=== PATIENT | female | born 1960 | race Two or more races ===

== ENCOUNTER 2017-11-14 19:22 | Inpatient (IN) | payer MEDICAID ==
[~2017-11-14] VITALS: Ht 165.1 cm; Wt 105.3 kg
[2017-11-14 21:31] LABS: Basophils # (auto) 0.1 uL; Basophils % (auto) 1.1 % (0.0-2.0); Eosinophils # (auto) 0.1 uL; Eosinophils % (auto) 1.8 % (0.0-7.0); Hematocrit 47.1 % (36.0-46.0); Hemoglobin 15.4 g/dL (12.2-16.2); Lymphocytes # (auto) 3.1 uL; Lymphocytes % (auto) 40.9 % (10.0-50.0); Mean Corpuscular Hemoglobin 28.2 pg (28.0-32.0); Mean Corpuscular Hgb Conc. 32.7 g/dL (32.0-36.0); Mean Corpuscular Volume 86.2 fL (80.0-100.0); Monocytes # (auto) 0.4 uL; Monocytes % (auto) 5.2 % (0.0-12.0); Neutrophils # (auto) 3.9 uL; Nucleated Red Blood Cells % 0.1 %; Platelet Count (auto) 237 10^3/uL (140-450); Red Blood Cells 5.47 10^6/uL (4.0-5.20); Red Cell Distribution Width 13.3 % (11.8-14.3); White Blood Cell 7.6 10^3/uL (4.4-10.8)
[2017-11-14 21:44] LABS: Alanine Aminotransferase 61 U/L (13-56); Albumin 3.8 g/dL (3.4-5.0); Alkaline Phosphatase 85 U/L (45-117); Anion Gap 7 (5-15); Aspartate Aminotransferase 32 U/L (15-37); BUN/Creatinine Ratio 14.8; Bilirubin, Total 0.3 mg/dL (0.2-1.0); Blood Urea Nitrogen 12 mg/dL (7-18); Calcium 9.3 mg/dL (8.5-10.1); Carbon Dioxide 30 mmol/L (21-32); Chloride 97 mmol/L (98-107); GFR African American 94 mL/min; GFR Non-African American 78 mL/min; Glucose 358 mg/dL (74-106); Magnesium 2.1 mg/dL (1.6-2.6); Potassium 4.7 mmol/L (3.5-5.1); Sodium 134 mmol/L (136-145); Total Protein 7.8 g/dL (6.4-8.2)
[2017-11-15] MEDS ORDERED: ASPirin 81 mg TAB PO ONE (02:15)
[2017-11-15] MEDS ORDERED: SODIUM CHLORIDE 0.9% 1,000 ML IV ONE (02:15)
[2017-11-15] MEDS ORDERED: ONDANSETRON HCL 4 MG/2 ML VIAL IV PRN (05:30)
[2017-11-15] MEDS ORDERED: HYDROcodone-ACET 5/325MG TAB PO PRN (05:30)
[2017-11-15] MEDS ORDERED: DEXTROSE (50%) 50ML SYRG IV PRN (05:30)
[2017-11-15] MEDS: ACCU-CHEK COMFORT CURVE STRIP VI SCH ×4 (07:07→22:01)
[2017-11-15] MEDS: InsuLIN REG 1unit/0.01ml Soln (100units/ml) SC SCH ×3 (07:07→18:35)
[2017-11-15 07:55] VITALS: BP 150/89
[2017-11-15] MEDS ORDERED: LOSA50TA6 PO (07:59)
[2017-11-15] MEDS ORDERED: ATEN50TA PO (07:59)
[2017-11-15] MEDS ORDERED: ASPI81TA27 PO (07:59)
[2017-11-15] MEDS ORDERED: PNEUMOCOCCAL VACC POLYS 25 MCG/0.5 ML VIAL IM ONE (09:15)
[2017-11-15] MEDS ORDERED: INFLUENZA QUAD 2017-2018 0.5 ML SYRG IM ONE (09:15)
[2017-11-15 09:32] LABS: Basophils # (auto) 0.1 uL; Basophils % (auto) 0.9 % (0.0-2.0); Eosinophils # (auto) 0.1 uL; Eosinophils % (auto) 1.8 % (0.0-7.0); Lymphocytes # (auto) 2.1 uL; Lymphocytes % (auto) 36.8 % (10.0-50.0); Mean Corpuscular Hemoglobin 28.3 pg (28.0-32.0); Mean Corpuscular Hgb Conc. 33.4 g/dL (32.0-36.0); Mean Corpuscular Volume 84.9 fL (80.0-100.0); Monocytes # (auto) 0.3 uL; Neutrophils # (auto) 3.1 uL; Neutrophils % (auto) 54.5 % (37.0-80.0); Nucleated Red Blood Cells % 0.2 %; Platelet Count (auto) 206 10^3/uL (140-450); Red Blood Cells 5.29 10^6/uL (4.0-5.20); Red Cell Distribution Width 13.4 % (11.8-14.3); White Blood Cell 5.7 10^3/uL (4.4-10.8)
[2017-11-15] MEDS: METOPROLOL TARTRATE 50 MG TAB PO SCH ×2 (09:43→22:01)
[2017-11-15] MEDS: ASPirin-EC 81 mg tab PO SCH (09:43)
[2017-11-15] MEDS: LOSARTAN POTASSIUM 50 MG TAB PO SCH (09:44)
[2017-11-15 09:51] LABS: BUN/Creatinine Ratio 13.7; Calcium 8.5 mg/dL (8.5-10.1)
[2017-11-15 13:00] VITALS: BP 155/93
[2017-11-15 17:26] VITALS: BP 141/74
[2017-11-15] MEDS: ACETAMINOPHEN 500 MG TAB PO PRN (18:35)
[2017-11-15 19:23] LABS: Urine WBC None Seen /hpf (0 - 5)
[2017-11-15 19:58] LABS: Urine Bacteria NONE SEEN /hpf (None Seen); Urine Blood Negative /uL (Negative); Urine Specific Gravity 1.005 (1.001-1.035)
[2017-11-15 20:00] VITALS: BP 137/83
[2017-11-15] MEDS ORDERED: InsuLIN REG 1unit/0.01ml Soln (100units/ml) SC SCH (22:00)
[2017-11-15] MEDS ORDERED: ATORVASTATIN 20 MG TAB PO SCH (22:00)
[2017-11-16] MEDS: ACETAMINOPHEN 500 MG TAB PO PRN (04:53)
[2017-11-16] MEDS: ACCU-CHEK COMFORT CURVE STRIP VI SCH (06:56)
[2017-11-16] MEDS: InsuLIN REG 1unit/0.01ml Soln (100units/ml) SC SCH (06:57)
[2017-11-16 07:21] LABS: Basophils # (auto) 0.1 uL; Eosinophils # (auto) 0.1 uL; Eosinophils % (auto) 2.3 % (0.0-7.0); Hematocrit 44.4 % (36.0-46.0); Lymphocytes # (auto) 1.9 uL; Lymphocytes % (auto) 33.6 % (10.0-50.0); Mean Corpuscular Hemoglobin 28.4 pg (28.0-32.0); Mean Corpuscular Hgb Conc. 33.7 g/dL (32.0-36.0); Mean Corpuscular Volume 84.3 fL (80.0-100.0); Monocytes # (auto) 0.3 uL; Monocytes % (auto) 5.9 % (0.0-12.0); Neutrophils # (auto) 3.3 uL; Neutrophils % (auto) 57.2 % (37.0-80.0); Nucleated Red Blood Cells % 0.1 %; Platelet Count (auto) 187 10^3/uL (140-450); Red Blood Cells 5.27 10^6/uL (4.0-5.20); Red Cell Distribution Width 13.5 % (11.8-14.3); White Blood Cell 5.8 10^3/uL (4.4-10.8)
[2017-11-16 07:39] LABS: BUN/Creatinine Ratio 15.8; Calcium 8.5 mg/dL (8.5-10.1); Magnesium 2.2 mg/dL (1.6-2.6)
[2017-11-16 07:46] LABS: Phosphorus 4.3 mg/dL (2.5-4.90)
[2017-11-16 08:00] VITALS: BP 132/87
[2017-11-16] MEDS: LOSARTAN POTASSIUM 50 MG TAB PO SCH (10:04)
[2017-11-16] MEDS: ASPirin-EC 81 mg tab PO SCH (10:04)
[2017-11-16] MEDS: METOPROLOL TARTRATE 50 MG TAB PO SCH (10:05)
[2017-11-16 13:00] VITALS: BP 161/77
[2017-11-16] MEDS ORDERED: METF-370 PO (13:49)
[2017-11-16] MEDS ORDERED: GLIP-115 PO (13:49)
[2017-11-16 14:28] VITALS: BP 161/97
[2017-11-17] MEDS ORDERED: LOSARTAN POTASSIUM 50 MG TAB PO SCH (10:00)
[2017-11-17] MEDS ORDERED: ASPirin-EC 81 mg tab PO SCH (10:00)
== END 2017-11-16 15:25 | disposition home or self-care (01) | DRG 203 ==
LOC: ER 19:22 → TELE 19:23 → TELE-WESTW 11-15 08:56 → TELE-CENTR 11-15 11:20
PROVIDERS: ADMIT Nurse Practitioner Family; ATTEND Nurse Practitioner Acute Care
DX: R07.9 Chest pain, unspecified (principal); E11.65 Type 2 diabetes mellitus with hyperglycemia; I10 Essential (primary) hypertension; D75.1 Secondary polycythemia; E87.1 Hypo-osmolality and hyponatremia; E66.9 Obesity, unspecified; Z82.49 Family history of ischemic heart disease and other diseases of the circulatory system; Z83.3 Family history of diabetes mellitus; Z23 Encounter for immunization; Z68.38 Body mass index [BMI] 38.0-38.9, adult
CPT/HCPCS: 36415; 70450; 71045; 80048; 80053; 80061; 81001; 82962; 83036; 83735; 84100; 84484; 85025; 93005; 96360; 96372; J1815